=== PATIENT | male | born 1950 | race Caucasian/White ===

== ENCOUNTER 2023-03-02 13:19 | Outpatient (CLI) | payer OTHER | END 2023-03-02 13:20 | disposition home or self-care (01) | LOC: BICCT 13:19 | PROVIDERS: ATTEND Family Medicine | DX: R91.1 Solitary pulmonary nodule (principal) | CPT/HCPCS: 71260 ==

== ENCOUNTER 2024-02-08 10:27 | Outpatient (CLI) | payer OTHER | END 2024-02-08 10:28 | disposition home or self-care (01) | LOC: SCSMRI 10:27 | PROVIDERS: ATTEND Orthopaedic Surgery | DX: M75.111 Incomplete rotator cuff tear or rupture of right shoulder, not specified as traumatic (principal); S43.431A Superior glenoid labrum lesion of right shoulder, initial encounter; M19.011 Primary osteoarthritis, right shoulder | CPT/HCPCS: 70210 ==

== ENCOUNTER 2025-02-19 10:48 | Outpatient (CLI) | payer OTHER | END 2025-02-19 10:49 | disposition home or self-care (01) | LOC: BICCT 10:48 | PROVIDERS: ATTEND Family Medicine | DX: R05.3 Chronic cough (principal); R91.8 Other nonspecific abnormal finding of lung field | CPT/HCPCS: 71250 ==